=== PATIENT | male | born 1985 | race Caucasian/White ===

== ENCOUNTER 2023-10-23 18:08 | Emergency (ER) | payer SELFPAY ==
[2023-10-23] MEDS: Diphtheria,Pertussis(Acell),Tetanus Vaccine 0.5 ML Syringe IM ONE (18:33)
== END 2023-10-23 18:36 | disposition home or self-care (01) ==
LOC: MW.ED 18:08
DX: S61.411A Laceration without foreign body of right hand, initial encounter (principal); Z23 Encounter for immunization; W26.8XXA Contact with other sharp object(s), not elsewhere classified, initial encounter
CPT/HCPCS: 12001; 90471; 90715; 99282-25; 99283